=== PATIENT | male | born 2000 | race Caucasian/White ===

== ENCOUNTER 2021-12-17 01:40 | Emergency (ER) | payer OTHER | END 2021-12-17 05:25 | disposition home or self-care (01) | LOC: ERS 01:40 | DX: F10.129 Alcohol abuse with intoxication, unspecified (principal); R41.82 Altered mental status, unspecified; R00.0 Tachycardia, unspecified; R11.10 Vomiting, unspecified | CPT/HCPCS: 96360; 96361 ==